=== PATIENT | female | born 2000 | race Caucasian/White ===

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

== ENCOUNTER 2024-05-15 20:29 | Emergency (ER) | payer OTHER, SELFPAY ==
[2024-05-15 21:21] LABS: Pregnancy Test - Urine (BHCG) Negative (Negative); Pregu Control Background? CLEAR/WHITE (CLR/WHITE); Pregu Control Bar Appear? YES (CONTROL BAR); Specific Gravity 1.023 (1.002-1.036)
[2024-05-15 21:35] LABS: Bilirubin Negative (Negative); Blood, Urine 1+ (Negative); CAUTI Indications for Culture Dysuria,urgency,freq; Clarity Turbid (Clear); Glucose, Urine (Dipstick) Normal (Negative); Ketone, Urine Negative (Negative); Leukocyte 500 Leu/uL (Negative); Nitrite Negative (Negative); Protein, Urine (Dipstick) 20 mg/dL (Neg-Trace); Specific Gravity, Urine 1.023 (1.002-1.036); Urobilinogen Normal mg/dL (Less than 2)
[2024-05-15 21:56] LABS: Bacteria/HPF 1+ HPF (None Seen); Yeast-Budding Rare HPF (None Seen); Yeast-Hyphae 2+ HPF (None Seen)
[2024-05-15 21:58] LABS: RBC/HPF 0-3 HPF (0-3); WBC/HPF 21-50 HPF (0-3)
[2024-05-15 22:05] LABS: Urine Culture Reflex Yes Yes
[2024-05-15] MEDS ORDERED: Lidocaine 1% PF 5 ML VIAL ONE (22:20)
[2024-05-15] MEDS ORDERED: cefTRIAXone (ROCEPHIN) 500 MG VIAL ONE (22:20)
[2024-05-16 06:21] LABS: Chlamydia by PCR, Vaginal Swab Not Detected (NotDetected); GC by PCR, Vaginal Swab Not Detected (NotDetected)
== END 2024-05-15 22:25 | disposition home or self-care (01) ==
LOC: ERS 20:29
DX: B37.31 Acute candidiasis of vulva and vagina (principal); J06.9 Acute upper respiratory infection, unspecified
CPT/HCPCS: 81001; 81025; 87086; 87428; 87480; 87491; 87510; 87591; 87660; 96372; 99283; J0696

== ENCOUNTER 2024-05-19 20:58 | Emergency (ER) | payer SELFPAY ==
[2024-05-19 21:23] LABS: #Basophils 0.03 10x3/uL (0.0-0.2); %Basophils 0.4 % (0.0-1.0); %Eosinophils 1.4 % (0.0-10.0); %Lymphocytes 30.4 % (21.0-51.0); %Monocytes 6.4 % (0.0-10.0); %Neutrophils 61.2 % (42.0-75.0); Hematocrit 42.6 % (36.0-47.0); Hemoglobin 13.8 g/dL (12.0-16.0); Mean Corpuscular HGB CONC 32.4 g/dL (32.0-36.0); Mean Corpuscular Hemoglobin 29.1 pg (27.0-31.0); Mean Corpuscular Volume 89.9 fL (78.0-98.0); Mean Platelet Volume 10.8 fL (7.4-10.4); Platelet Count 221 10x3/uL (130-400); Red Blood Cell (RBC) Count 4.74 mill/uL (4.20-5.40)
[2024-05-19 21:36] LABS: ALT (SGPT) 11 U/L (8-55); AST (SGOT) 13 U/L (5-34); Albumin 4.2 g/dL (3.5-5.0); Alkaline Phosphatase 66 U/L (40-110); Anion Gap 14 mmol/L (10-20); BUN (Urea Nitrogen) 13 mg/dL (7.0-18.7); Bilirubin, Total 0.3 mg/dL (0.2-1.2); Calc. Creatinine Clearance 0 mL/min (70-130); Calcium 9.8 mg/dL (7.8-10.44); Carbon Dioxide 24 mmol/L (22-29); Chloride 105 mmol/L (98-107); Estimated GFR 104; Globulin 3.2 g/dL (2.4-3.5); Glucose 99 mg/dL (70-105); Potassium 3.7 mmol/L (3.5-5.1); Protein, Total 7.4 g/dL (6.0-8.3); Sodium 139 mmol/L (136-145)
[2024-05-19] MEDS ORDERED: Ondansetron PF 4 MG/2 ML Vial ONE (21:52)
[2024-05-19] MEDS ORDERED: Ketorolac Tromethamine 30 MG (1 mL) VIAL ONE (21:52)
[2024-05-19 22:35] LABS: Bacteria/HPF None Seen HPF (None Seen); Bilirubin Negative (Negative); Blood, Urine 1+ (Negative); CAUTI Indications for Culture Acute Hematuria; Clarity Clear (Clear); Glucose, Urine (Dipstick) Normal (Negative); Ketone, Urine Negative (Negative); Leukocyte 75 Leu/uL (Negative); Nitrite Negative (Negative); Protein, Urine (Dipstick) 20 mg/dL (Neg-Trace); Specific Gravity, Urine 1.014 (1.002-1.036); Squamous Epithelial 0-3 HPF (0-3); Urobilinogen Normal mg/dL (Less than 2); WBC/HPF 21-50 HPF (0-3)
[2024-05-19 22:37] LABS: Urine Culture Reflex Yes Yes
[2024-05-19] MEDS ORDERED: Sodium Chloride 0.9% 100 ML ONE (22:55)
[2024-05-19] MEDS ORDERED: cefTRIAXone (ROCEPHIN) 2 GM VIAL ONE (22:55)
== END 2024-05-19 23:30 | disposition home or self-care (01) ==
LOC: ERS 20:58
DX: N20.0 Calculus of kidney (principal); N10 Acute pyelonephritis
CPT/HCPCS: 36415; 87086; 96374; 96375; J0696; J1885; J2405